=== PATIENT | female | born 1975 | race African-American/Black ===

== ENCOUNTER 2019-05-12 09:14 | Emergency (ER) | payer SELFPAY ==
[~2019-05-12] VITALS: Ht 170.2 cm; Wt 113.4 kg
[2019-05-12 09:50] LABS: Urine WBC None Seen /hpf (0 - 5)
[2019-05-12] MEDS ORDERED: MECLIZINE HCL 25 MG TAB PO ONE (10:00)
[2019-05-12 10:06] LABS: Urine Bacteria NONE SEEN /hpf (None Seen); Urine Blood Negative /uL (Negative); Urine Specific Gravity 1.019 (1.001-1.035)
[2019-05-12 10:25] LABS: Basophils # (auto) 0.1 uL; Basophils % (auto) 0.8 % (0.0-2.0); Eosinophils # (auto) 0 uL; Eosinophils % (auto) 0.5 % (0.0-7.0); Hemoglobin 16.2 g/dL (12.2-16.2); Lymphocytes # (auto) 2.2 uL; Lymphocytes % (auto) 34.4 % (10.0-50.0); Mean Corpuscular Hemoglobin 32.4 pg (28.0-32.0); Mean Corpuscular Hgb Conc. 33.7 g/dL (32.0-36.0); Mean Corpuscular Volume 96.2 fL (80.0-100.0); Monocytes # (auto) 0.5 uL; Monocytes % (auto) 7.1 % (0.0-12.0); Neutrophils # (auto) 3.7 uL; Neutrophils % (auto) 57.2 % (37.0-80.0); Nucleated Red Blood Cells % 0.1 %; Platelet Count (auto) 160 10^3/uL (140-450); Red Blood Cells 4.99 10^6/uL (4.0-5.20); Red Cell Distribution Width 13.6 % (11.8-14.3); White Blood Cell 6.5 10^3/uL (4.4-10.8)
[2019-05-12 10:46] LABS: Alanine Aminotransferase 19 U/L (13-56); Albumin 3.9 g/dL (3.4-5.0); Anion Gap 9 (5-15); Blood Urea Nitrogen 15 mg/dL (7-18); Calcium 9.6 mg/dL (8.5-10.1); Carbon Dioxide 26 mmol/L (21-32); Chloride 104 mmol/L (98-107); Glucose 131 mg/dL (74-106); Potassium 3.9 mmol/L (3.5-5.1); Sodium 139 mmol/L (136-145)
[2019-05-12 10:51] LABS: Alkaline Phosphatase 74 U/L (45-117); Aspartate Aminotransferase 22 U/L (15-37); BUN/Creatinine Ratio 22.7; Bilirubin, Total 0.4 mg/dL (0.2-1.0); GFR African American 126 mL/min; GFR Non-African American 104 mL/min; Total Protein 8.7 g/dL (6.4-8.2)
[2019-05-12 11:15] VITALS: BP 163/96
== END 2019-05-12 11:54 | disposition home or self-care (01) ==
LOC: ER 09:14 → EDUNIT# 09:14 → EDBD 09:14 → ER 11:54
DX: R42 Dizziness and giddiness (principal); H83.2X9 Labyrinthine dysfunction, unspecified ear; E11.9 Type 2 diabetes mellitus without complications; I10 Essential (primary) hypertension
CPT/HCPCS: 36415; 70450; 80053; 81001; 84484; 85025; 93005; 99284; J8597

== ENCOUNTER → 2020-06-15 | Outpatient (CLI) | payer OTHER ==
[2020-06-15 10:23] LABS: Basophils # (auto) 0 10 ^3/uL (0-0.2); Basophils % (auto) 0.7 % (0.0-2.0); Eosinophils # (auto) 0.1 10 ^3/uL (0-0.8); Eosinophils % (auto) 1.3 % (0.0-7.0); Hematocrit 43.8 % (36.0-46.0); Hemoglobin 14.9 g/dL (12.2-16.2); Lymphocytes # (auto) 1.8 10 ^3/uL (0.4-5.4); Lymphocytes % (auto) 38.8 % (10.0-50.0); Mean Corpuscular Hemoglobin 33.3 pg (28.0-32.0); Monocytes # (auto) 0.3 10 ^3/uL (0-1.3); Monocytes % (auto) 7.2 % (0.0-12.0); Neutrophils # (auto) 2.5 10 ^3/uL (1.6-8.6); Nucleated Red Blood Cells % 0.2 %; Platelet Count (auto) 167 10^3/uL (140-450); Red Blood Cells 4.47 10^6/uL (4.0-5.20); Red Cell Distribution Width 12.9 % (11.8-14.3); White Blood Cell 4.7 10^3/uL (4.4-10.8)
[2020-06-15 10:53] LABS: Urine Bacteria FEW /hpf (None Seen); Urine Blood Negative /uL (Negative); Urine Specific Gravity 1.018 (1.001-1.035); Urine WBC <1 /hpf (0 - 5)
[2020-06-15 14:18] LABS: Albumin 3.3 g/dL (3.4-5.0); BUN/Creatinine Ratio 16.7; Bilirubin, Total 0.4 mg/dL (0.2-1.0); Potassium 4.6 mmol/L (3.5-5.1); Total Protein 7.6 g/dL (6.4-8.2)
[2020-06-17 09:32] LABS: Free T4 (Free Thyroxine) 0.74 ng/dL (0.89-1.76)
== END | disposition home or self-care (01) ==
LOC: LAB 08:53
PROVIDERS: ATTEND Internal Medicine
DX: Z00.00 Encounter for general adult medical examination without abnormal findings (principal); I10 Essential (primary) hypertension
CPT/HCPCS: 36415; 80053; 80061; 81001; 82043; 82306; 82607; 83036; 84439; 84443; 85025

== ENCOUNTER → 2023-10-26 | Outpatient (CLI) | payer OTHER ==
[2023-10-26 13:19] LABS: Anion Gap 6 (5-15); Calcium 9.6 mg/dL (8.5-10.1); Carbon Dioxide 31 mmol/L (20-30); Chloride 103 mmol/L (98-107); Potassium 4.2 mmol/L (3.5-5.1); Sodium 140 mmol/L (136-145)
[2023-10-26 13:24] LABS: Glucose 220 mg/dL (74-106)
[2023-10-26 13:25] LABS: BUN/Creatinine Ratio 16.9 (10.0-20.0); Blood Urea Nitrogen 14 mg/dL (9-23)
== END | disposition home or self-care (01) ==
LOC: LAB 12:48
PROVIDERS: ATTEND Urology
DX: R33.9 Retention of urine, unspecified (principal)
CPT/HCPCS: 36415; 80048

== ENCOUNTER → 2024-02-17 | Outpatient (CLI) | payer OTHER ==
[2024-02-17 10:04] LABS: Basophils # (auto) 0.1 10 ^3/uL (0-0.2); Basophils % (auto) 0.9 % (0.0-2.0); Eosinophils # (auto) 0.1 10 ^3/uL (0-0.8); Eosinophils % (auto) 1.3 % (0.0-7.0); Hematocrit 43.3 % (36.0-46.0); Hemoglobin 14.9 g/dL (12.2-16.2); Lymphocytes # (auto) 2.8 10 ^3/uL (0.4-5.4); Lymphocytes % (auto) 38.6 % (10.0-50.0); Mean Corpuscular Hemoglobin 32.6 pg (28.0-32.0); Mean Corpuscular Hgb Conc. 34.4 g/dL (32.0-36.0); Mean Corpuscular Volume 94.5 fL (80.0-100.0); Monocytes # (auto) 0.7 10 ^3/uL (0-1.3); Monocytes % (auto) 9.4 % (0.0-12.0); Neutrophils # (auto) 3.6 10 ^3/uL (1.6-8.6); Neutrophils % (auto) 49.8 % (37.0-80.0); Nucleated Red Blood Cells % 0.1 %; Red Blood Cells 4.58 10^6/uL (4.0-5.20); Red Cell Distribution Width 13.4 % (11.8-14.3); White Blood Cell 7.2 10^3/uL (4.4-10.8)
[2024-02-17 10:21] LABS: Urine Bacteria FEW /hpf (None Seen); Urine Blood 2+ /uL (Negative); Urine Clarity Turbid (Clear); Urine Color Light-Orange (Yellow); Urine Mucus FEW (None Seen); Urine Protein, UAD 1+ (Negative); Urine Specific Gravity 1.022 (1.001-1.035); Urine Urobilinogen Normal (Negative); Urine WBC 265 /hpf (0 - 5); Urine WBC Clumps PRESENT /hpf (None Seen); Urine pH 5.5 (5.0-9.0)
[2024-02-17 11:17] LABS: Alanine Aminotransferase 51 U/L (7-40); Alkaline Phosphatase 79 U/L (46-116); Anion Gap 8 (5-15); Carbon Dioxide 22 mmol/L (20-30); Chloride 106 mmol/L (98-107); Sodium 136 mmol/L (136-145)
[2024-02-17 11:18] LABS: Calcium 9.5 mg/dL (8.5-10.1)
[2024-02-17 11:19] LABS: Free T4 (Free Thyroxine) 1.07 ng/dL (0.89-1.76)
[2024-02-17 11:23] LABS: BUN/Creatinine Ratio 15.8 (10.0-20.0); Blood Urea Nitrogen 12 mg/dL (9-23); Glucose 260 mg/dL (74-106); Triglycerides 107 mg/dL (< 150)
[2024-02-17 11:24] LABS: Albumin 4.3 g/dL (3.2-4.8); LDL Cholesterol 148 mg/dL (< 100)
[2024-02-17 11:25] LABS: Aspartate Aminotransferase 107 U/L (13-40); Bilirubin, Total 0.8 mg/dL (0.2-1.0); Cholesterol 206 mg/dL (< 200); HDL Cholesterol 42 mg/dL (40-59); Total Protein 7.2 g/dL (5.7-8.2)
== END | disposition home or self-care (01) ==
LOC: LAB 09:45
PROVIDERS: ATTEND Internal Medicine
DX: I10 Essential (primary) hypertension (principal); R73.03 Prediabetes; E78.2 Mixed hyperlipidemia; E66.01 Morbid (severe) obesity due to excess calories
CPT/HCPCS: 36415; 80053; 80061; 81001; 82043; 82306; 82607; 83036; 84439; 84443; 85025

== ENCOUNTER → 2024-03-06 | Outpatient (CLI) | payer OTHER ==
[~2024-03-06] MED LIST: AMLO1TAB22 PO; APIX5TAB PO; APIX5TAB4 PO; EMPA1TAB3 PO; LOSA-535 PO; ROSU10TA64 PO
== END | disposition home or self-care (01) ==
LOC: XYW 15:58
PROVIDERS: ATTEND Internal Medicine
DX: I51.89 Other ill-defined heart diseases (principal); R00.0 Tachycardia, unspecified; E66.9 Obesity, unspecified
CPT/HCPCS: 93306

== ENCOUNTER 2024-03-23 16:10 | Inpatient (IN) | payer OTHER ==
[~2024-03-23] VITALS: Ht 170.2 cm; Wt 120.0 kg
[2024-03-23] MEDS: IOHEXOL 350 MG/ML 100ML IJ ONE (18:08)
[2024-03-23] MEDS: HEPARIN SODIUM (PORCINE) 5000 UNITS/ML 1ML VIAL IV ONE (20:01)
[2024-03-23 20:16] LABS: Basophils # (auto) 0 10 ^3/uL (0-0.2); Basophils % (auto) 0.5 % (0.0-2.0); Eosinophils # (auto) 0.1 10 ^3/uL (0-0.8); Eosinophils % (auto) 1.3 % (0.0-7.0); Hematocrit 46.3 % (36.0-46.0); Hemoglobin 15.3 g/dL (12.2-16.2); Lymphocytes # (auto) 3.8 10 ^3/uL (0.4-5.4); Lymphocytes % (auto) 41.4 % (10.0-50.0); Mean Corpuscular Hemoglobin 31.1 pg (28.0-32.0); Mean Corpuscular Volume 94.3 fL (80.0-100.0); Monocytes # (auto) 0.8 10 ^3/uL (0-1.3); Monocytes % (auto) 8.8 % (0.0-12.0); Neutrophils # (auto) 4.4 10 ^3/uL (1.6-8.6); Nucleated Red Blood Cells % 0.1 %; Platelet Count (auto) 176 10^3/uL (140-450); Red Blood Cells 4.92 10^6/uL (4.0-5.20); Red Cell Distribution Width 13.1 % (11.8-14.3); White Blood Cell 9.2 10^3/uL (4.4-10.8)
[2024-03-23 20:36] VITALS: PULSE 98; RESP 18; O2SAT 98
[2024-03-23 20:37] LABS: Alanine Aminotransferase 23 U/L (7-40); Albumin 4.6 g/dL (3.2-4.8); Alkaline Phosphatase 86 U/L (46-116); Anion Gap 8 (5-15); Aspartate Aminotransferase 35 U/L (13-40); BUN/Creatinine Ratio 17.9 (10.0-20.0); Blood Urea Nitrogen 12 mg/dL (9-23); Calcium 10.3 mg/dL (8.7-10.4); Carbon Dioxide 25 mmol/L (20-30); Chloride 107 mmol/L (98-107); Glucose 101 mg/dL (74-106); INR 1.13 (0.9-1.15); Partial Thromboplastin Time 25.6 SEC (24.5-34.5); Prothrombin Time 11.9 sec (9.3-11.8); Sodium 140 mmol/L (136-145)
[2024-03-23 20:38] LABS: Bilirubin, Total 0.7 mg/dL (0.2-1.0)
[2024-03-23] MEDS: HEPARIN DRIP/D5W 100UNITS/ML 250 ML IV SCH (20:46)
[2024-03-23] MEDS ORDERED: DEXTROSE (50%) 50ML SYRG IV PRN (21:30)
[2024-03-23] MEDS ORDERED: ONDANSETRON HCL 4 MG/2 ML VIAL IV PRN (21:30)
[2024-03-23] MEDS ORDERED: IPRATROPIUM BROM 0.5 MG/2.5ML INH SOL NEB PRN (21:30)
[2024-03-23] MEDS ORDERED: ALBUTEROL SULF 2.5 MG/0.5ML(0.5%) NEB SOLN NEB PRN (21:30)
[2024-03-23] MEDS ORDERED: ACETAMINOPHEN 325 MG TAB PO PRN (21:30)
[2024-03-23] MEDS ORDERED: hydrALAZINE HCL 20 MG/ML VL IV PRN (21:30)
[2024-03-23] MEDS ORDERED: DOCUSATE SOD 100 MG CAP PO PRN (21:30)
[2024-03-23 21:55] VITALS: BP 144/89; PULSE 98; RESP 20; TEMP 98; O2SAT 98
[2024-03-23] MEDS: InsuLIN REG 1unit/0.01ml Soln (100units/ml) SC SCH (22:00)
[2024-03-23] MEDS: SODIUM CHLOR 0.9% PF (SALINE LOCK) 10ML VIAL/SYR IV SCH (22:06)
[2024-03-23] MEDS: ACCU-CHEK COMFORT CURVE STRIP VI SCH (22:06)
[2024-03-23] MEDS: ATORVASTATIN 20 MG TAB PO SCH (22:09)
[2024-03-23] MEDS ORDERED: MORPHINE SULFATE INJ 2 MG/ml SYRG IV PRN (23:45)
[2024-03-23] MEDS ORDERED: NITROGLYCERIN 0.4 MG SL TAB SL PRN (23:45)
[2024-03-24] VITALS (15 sets, daily range): BP systolic 91–109; BP diastolic 55–74; PULSE 66–102; RESP 12–20; TEMP 98.2–99.1; O2SAT 94–100
[2024-03-24 03:45] LABS: Basophils # (auto) 0.1 10 ^3/uL (0-0.2); Basophils % (auto) 0.8 % (0.0-2.0); Eosinophils # (auto) 0.1 10 ^3/uL (0-0.8); Eosinophils % (auto) 1.4 % (0.0-7.0); Hematocrit 42.1 % (36.0-46.0); Hemoglobin 14.3 g/dL (12.2-16.2); Lymphocytes # (auto) 2.7 10 ^3/uL (0.4-5.4); Lymphocytes % (auto) 37.7 % (10.0-50.0); Mean Corpuscular Hemoglobin 31.4 pg (28.0-32.0); Mean Corpuscular Hgb Conc. 33.9 g/dL (32.0-36.0); Mean Corpuscular Volume 92.5 fL (80.0-100.0); Monocytes # (auto) 0.7 10 ^3/uL (0-1.3); Monocytes % (auto) 9.2 % (0.0-12.0); Neutrophils # (auto) 3.7 10 ^3/uL (1.6-8.6); Neutrophils % (auto) 50.9 % (37.0-80.0); Platelet Count (auto) 186 10^3/uL (140-450); Red Blood Cells 4.55 10^6/uL (4.0-5.20); Red Cell Distribution Width 13.4 % (11.8-14.3); White Blood Cell 7.2 10^3/uL (4.4-10.8)
[2024-03-24] MEDS ORDERED: AMLO1TAB22 PO (03:46)
[2024-03-24] MEDS ORDERED: EMPA1TAB3 PO (03:46)
[2024-03-24] MEDS ORDERED: LOSA-535 PO (03:46)
[2024-03-24] MEDS ORDERED: ROSU10TA64 PO (03:46)
[2024-03-24 03:59] LABS: Alanine Aminotransferase 23 U/L (7-40); Alkaline Phosphatase 74 U/L (46-116); Calcium 9.6 mg/dL (8.7-10.4); Chloride 108 mmol/L (98-107)
[2024-03-24 04:00] LABS: Albumin 4.2 g/dL (3.2-4.8); Anion Gap 8 (5-15); Aspartate Aminotransferase 29 U/L (13-40); BUN/Creatinine Ratio 16.2 (10.0-20.0); Bilirubin, Total 0.6 mg/dL (0.2-1.0); Blood Urea Nitrogen 12 mg/dL (9-23); Carbon Dioxide 24 mmol/L (20-30); Glucose 237 mg/dL (74-106); Potassium 3.7 mmol/L (3.5-5.1); Sodium 140 mmol/L (136-145); Total Protein 7.2 g/dL (5.7-8.2)
[2024-03-24 04:23] LABS: INR 1.08 (0.9-1.15); Partial Thromboplastin Time 26.1 SEC (24.5-34.5); Prothrombin Time 11.4 sec (9.3-11.8)
[2024-03-24] MEDS: HEPARIN SODIUM (PORCINE) 5000 UNITS/ML 1ML VIAL IV ONE (04:53)
[2024-03-24] MEDS: HEPARIN DRIP/D5W 100UNITS/ML 250 ML IV SCH ×2 (04:59→19:32)
[2024-03-24] MEDS: amLODIPine BESYLATE 5 MG TAB PO SCH (10:07)
[2024-03-24] MEDS: LOSARTAN POTASSIUM 50 MG TAB PO SCH (10:08)
[2024-03-24 10:17] LABS: Base Excess -2.6 mmol/L (-2.0-2.0)
[2024-03-24 11:46] LABS: INR 1.09 (0.9-1.15); Partial Thromboplastin Time 32.7 SEC (24.5-34.5); Prothrombin Time 11.5 sec (9.3-11.8)
[2024-03-24] MEDS ORDERED: HEPARIN SODIUM (PORCINE) 5000 UNITS/ML 1ML VIAL IV ONE (12:15)
[2024-03-24 12:25] LABS: Amphetamine Screen, Urine Neg (NEGATIVE); Barbiturate Scree,Urine Neg (NEGATIVE)
[2024-03-24 12:26] LABS: Benzodiazephine Screen, Urine Neg (NEGATIVE); Cannabinoid Screen, Urine Neg (NEGATIVE); Cocaine Screen, Urine Neg (NEGATIVE); Opiate Scree,Urine Neg (NEGATIVE); Phencyclidine Screen, Urine Neg (NEGATIVE)
[2024-03-24] MEDS ORDERED: HEPARIN DRIP/D5W 100UNITS/ML 250 ML IV SCH (12:30)
[2024-03-24] MEDS: IODIXANOL 320MG/ML 100ML BTL IV ONE ×3 (12:40→14:01)
[2024-03-24] MEDS: HEPARIN IN NS 1000Units/500mL 1,500 ML ONE (12:41)
[2024-03-24] MEDS: MIDAZOLAM HCL 2MG/2ML 2ml VIAL (1mg/ml) ONE ×2 (12:42→13:34)
[2024-03-24] MEDS: fentaNYL CITRATE 100 MCG/2 ML VL ONE (12:42)
[2024-03-24] MEDS: LIDOCAINE 2%HCL (LOCAL ANESTH.) INJ 20ML MDV ONE (12:42)
[2024-03-24] MEDS: HEPARIN SODIUM (PORCINE) 5000 UNITS/ML 1ML VIAL ONE (13:25)
[2024-03-24 18:06] LABS: INR 1.17 (0.9-1.15); Prothrombin Time 12.3 sec (9.3-11.8)
[2024-03-24] MEDS: ERGOCALCIFEROL 50,000 UNIT(1.25MG) CAP PO SCH (18:26)
[2024-03-24 18:35] LABS: Partial Thromboplastin Time > 139.0 SEC (24.5-34.5)
[2024-03-25] VITALS (13 sets, daily range): BP systolic 104–147; BP diastolic 55–76; PULSE 62–105; RESP 16–19; TEMP 97.8–98.7; O2SAT 94–100
[2024-03-25] MEDS: HYDROcodone-ACET 5/325MG TAB PO PRN (03:55)
[2024-03-25 06:05] LABS: Basophils # (auto) 0 10 ^3/uL (0-0.2); Basophils % (auto) 0.7 % (0.0-2.0); Eosinophils # (auto) 0.1 10 ^3/uL (0-0.8); Eosinophils % (auto) 2.2 % (0.0-7.0); Hematocrit 36.5 % (36.0-46.0); Hemoglobin 12.3 g/dL (12.2-16.2); Lymphocytes % (auto) 45.5 % (10.0-50.0); Mean Corpuscular Hemoglobin 31.6 pg (28.0-32.0); Mean Corpuscular Hgb Conc. 33.8 g/dL (32.0-36.0); Mean Corpuscular Volume 93.4 fL (80.0-100.0); Monocytes # (auto) 0.6 10 ^3/uL (0-1.3); Neutrophils # (auto) 2.8 10 ^3/uL (1.6-8.6); Neutrophils % (auto) 42.6 % (37.0-80.0); Nucleated Red Blood Cells % 0.2 %; Platelet Count (auto) 174 10^3/uL (140-450); Red Cell Distribution Width 13.2 % (11.8-14.3); White Blood Cell 6.6 10^3/uL (4.4-10.8)
[2024-03-25 06:21] LABS: Anion Gap 3 (5-15); Calcium 9.1 mg/dL (8.7-10.4); Carbon Dioxide 28 mmol/L (20-30); Chloride 108 mmol/L (98-107); Sodium 139 mmol/L (136-145)
[2024-03-25 06:27] LABS: BUN/Creatinine Ratio 17.5 (10.0-20.0); Blood Urea Nitrogen 11 mg/dL (9-23); Glucose 165 mg/dL (74-106)
[2024-03-25] MEDS: Empagliflozin (Jardiance) 25 MG TAB PO SCH (08:35)
[2024-03-25 10:33] LABS: INR 1.13 (0.9-1.15); Prothrombin Time 11.9 sec (9.3-11.8)
[2024-03-25 10:40] LABS: Partial Thromboplastin Time 105.9 SEC (24.5-34.5)
[2024-03-25 11:24] LABS: Base Excess -0.9 mmol/L (-2.0-2.0)
[2024-03-25] MEDS: HEPARIN DRIP/D5W 100UNITS/ML 250 ML IV SCH (12:01)
[2024-03-25 19:11] LABS: INR 1.13 (0.9-1.15); Partial Thromboplastin Time 59.7 SEC (24.5-34.5); Prothrombin Time 11.9 sec (9.3-11.8)
[2024-03-26] VITALS (9 sets, daily range): BP systolic 98–113; BP diastolic 56–81; PULSE 82–98; RESP 16–20; TEMP 98.1–99.1; O2SAT 90–100
[2024-03-26 01:02] LABS: INR 1.14 (0.9-1.15); Partial Thromboplastin Time 61.2 SEC (24.5-34.5)
[2024-03-26 07:26] LABS: INR 1.1 (0.9-1.15); Partial Thromboplastin Time 62.4 SEC (24.5-34.5); Prothrombin Time 11.6 sec (9.3-11.8)
[2024-03-27] VITALS (14 sets, daily range): BP systolic 95–118; BP diastolic 52–90; PULSE 81–115; RESP 14–20; TEMP 97.5–98.7; O2SAT 92–98
[2024-03-27 05:45] LABS: Basophils # (auto) 0 10 ^3/uL (0-0.2); Basophils % (auto) 0.5 % (0.0-2.0); Eosinophils # (auto) 0.1 10 ^3/uL (0-0.8); Eosinophils % (auto) 2.1 % (0.0-7.0); Hematocrit 40.1 % (36.0-46.0); Hemoglobin 13.4 g/dL (12.2-16.2); Lymphocytes # (auto) 2.9 10 ^3/uL (0.4-5.4); Lymphocytes % (auto) 43.1 % (10.0-50.0); Mean Corpuscular Hemoglobin 31.2 pg (28.0-32.0); Mean Corpuscular Hgb Conc. 33.5 g/dL (32.0-36.0); Mean Corpuscular Volume 93.2 fL (80.0-100.0); Monocytes # (auto) 0.7 10 ^3/uL (0-1.3); Monocytes % (auto) 9.9 % (0.0-12.0); Neutrophils % (auto) 44.4 % (37.0-80.0); Nucleated Red Blood Cells % 0.1 %; Platelet Count (auto) 206 10^3/uL (140-450); Red Cell Distribution Width 13.3 % (11.8-14.3); White Blood Cell 6.7 10^3/uL (4.4-10.8)
[2024-03-27 05:49] LABS: Anion Gap 7 (5-15); Carbon Dioxide 24 mmol/L (20-30); Chloride 110 mmol/L (98-107); Potassium 4.1 mmol/L (3.5-5.1); Sodium 141 mmol/L (136-145)
[2024-03-27 05:51] LABS: Calcium 9.6 mg/dL (8.7-10.4)
[2024-03-27 05:55] LABS: Blood Urea Nitrogen 9 mg/dL (9-23); Glucose 149 mg/dL (74-106)
[2024-03-27 06:08] LABS: INR 1.06 (0.9-1.15); Partial Thromboplastin Time 42.8 SEC (24.5-34.5); Prothrombin Time 11.2 sec (9.3-11.8)
[2024-03-27] MEDS: HEPARIN DRIP/D5W 100UNITS/ML 250 ML IV SCH (06:54)
[2024-03-27] MEDS: HEPARIN IN NS 1000Units/500mL 1,500 ML ONE (12:23)
[2024-03-27] MEDS: SODIUM CHL 0.9% 50 ML ONE (13:49)
[2024-03-27] MEDS: HEPARIN SODIUM (PORCINE) 5000 UNITS/ML 1ML VIAL ONE (13:49)
[2024-03-27] MEDS: fentaNYL CITRATE 100 MCG/2 ML VL ONE (13:49)
[2024-03-27] MEDS: MIDAZOLAM HCL 2MG/2ML 2ml VIAL (1mg/ml) ONE (13:49)
[2024-03-27] MEDS: ANGIOMAX 250 MG VIAL IV ONE (13:49)
[2024-03-27] MEDS: LIDOCAINE 2%HCL (LOCAL ANESTH.) INJ 20ML MDV ONE (13:50)
[2024-03-27] MEDS: HYDROmorphone HCL 2 MG/ML VL/or syr ONE (14:51)
[2024-03-27 19:13] LABS: INR 1.11 (0.9-1.15); Partial Thromboplastin Time 66.3 SEC (24.5-34.5); Prothrombin Time 11.7 sec (9.3-11.8)
[2024-03-27 23:57] LABS: INR 1.13 (0.9-1.15); Partial Thromboplastin Time 64.9 SEC (24.5-34.5); Prothrombin Time 11.9 sec (9.3-11.8)
[2024-03-28] VITALS (7 sets, daily range): BP systolic 94–148; BP diastolic 51–88; PULSE 89–102; RESP 14–19; TEMP 97.8–98.3; O2SAT 96–100
[2024-03-28 06:53] LABS: INR 1.09 (0.9-1.15); Partial Thromboplastin Time 68.3 SEC (24.5-34.5); Prothrombin Time 11.5 sec (9.3-11.8)
[2024-03-28] MEDS ORDERED: APIX5TAB PO (10:10)
[2024-03-28] MEDS ORDERED: APIX5TAB4 PO (10:10)
[2024-03-28] MEDS: APIXABAN 5 MG TAB PO SCH (13:58)
[2024-03-29 11:07] LABS: Cancer Antigen (CA) 125 7.5 U/mL (0.0-38.1)
[2024-03-29 12:07] LABS: Antithrombin III Antigen 97 % (72-124); Dilute Prothrombin Time(dPT) 49.8 sec (0.0-47.6); PTT-LA 37.1 sec (0.0-43.5); Protein S Antigen Free 142 % (61-136); Proten S Antigen Total 149 % (60-150); Thrombin Time >150.0 sec (0.0-23.0); Thrombin Time Mix >150.0 sec (0.0-23.0); dPT Confirm Ratio 1.04 Ratio (0.00-1.34); dRVVT 47.1 sec (0.0-47.0); dRVVT Mix 39.4 sec (0.0-40.4)
[2024-03-29 12:07] LABS: CA 27.29 21.3 U/mL (0.0-38.6)
[2024-03-29 13:06] LABS: Carbohydrate Antigen 19-9 18 U/mL (0-35)
[2024-03-29 13:06] LABS: Lupus Interpretation Comment: (.); Thrombin Neutralization 19.7 sec (0.0-23.0)
[2024-04-04] MEDS ORDERED: APIXABAN 5 MG TAB PO SCH (10:00)
== END 2024-03-28 16:41 | disposition home or self-care (01) | DRG 270 ==
LOC: ER 16:10 → TELE 23:41 → TELE-CENTR 03-24 03:13
PROVIDERS: ADMIT Internal Medicine Geriatric Medicine; ATTEND Internal Medicine Geriatric Medicine
PROC: 02CQ3ZZ Extirpation of Matter from Right Pulmonary Artery, Percutaneous Approach (ICD-10-PCS; principal; 2024-03-24)
PROC: B31TYZZ Fluoroscopy of Left Pulmonary Artery using Other Contrast (ICD-10-PCS; 2024-03-24)
PROC: B31SYZZ Fluoroscopy of Right Pulmonary Artery using Other Contrast (ICD-10-PCS; 2024-03-24)
PROC: B5191ZZ Fluoroscopy of Inferior Vena Cava using Low Osmolar Contrast (ICD-10-PCS; 2024-03-24)
PROC: 04CD3ZZ Extirpation of Matter from Left Common Iliac Artery, Percutaneous Approach (ICD-10-PCS; 2024-03-27)
PROC: 04CN3ZZ Extirpation of Matter from Left Popliteal Artery, Percutaneous Approach (ICD-10-PCS; 2024-03-27)
PROC: 04CL3ZZ Extirpation of Matter from Left Femoral Artery, Percutaneous Approach (ICD-10-PCS; 2024-03-27)
PROC: B51NYZZ Fluoroscopy of Left Upper Extremity Veins using Other Contrast (ICD-10-PCS; 2024-03-27)
DX: I82.412 Acute embolism and thrombosis of left femoral vein (principal); I26.92 Saddle embolus of pulmonary artery without acute cor pulmonale; Z68.41 Body mass index [BMI] 40.0-44.9, adult; E11.9 Type 2 diabetes mellitus without complications; E66.01 Morbid (severe) obesity due to excess calories; E78.5 Hyperlipidemia, unspecified; I10 Essential (primary) hypertension; E55.9 Vitamin D deficiency, unspecified; Z79.84 Long term (current) use of oral hypoglycemic drugs
CPT/HCPCS: 36415; 36600; 37187; 71275; 75710; 75743; 76937; 80048; 80053; 80307; 81241; 82105; 82306; 82378; 82607; 82805; 82962; 83036; 84702; 85025; 85301; 85302; 85305; 85306; 85384; 85610; 85613; 85670; 85705; 85730; 85732; 86300; 86301; 86304; 86850; 86900; 86901; 93306; 93970; 99152; C1894; G0378; J1815; J2250; Q9967

== ENCOUNTER → 2024-03-23 | Outpatient (CLI) | payer OTHER ==
[~2024-03-23] MED LIST changes: -APIX5TAB PO; -APIX5TAB4 PO
== END | disposition home or self-care (01) ==
LOC: XYW 14:25
PROVIDERS: ATTEND Internal Medicine
DX: I26.99 Other pulmonary embolism without acute cor pulmonale (principal); R06.02 Shortness of breath; R06.00 Dyspnea, unspecified
CPT/HCPCS: 78582; A9540; A9558

== ENCOUNTER 2024-05-16 16:47 | Inpatient (IN) | payer OTHER ==
[~2024-05-16] VITALS: Ht 170.2 cm; Wt 139.6 kg
[~2024-05-16 16:47] MED LIST changes: +APIX5TAB PO; +APIX5TAB4 PO
[2024-05-16 21:53] VITALS: BP 121/61; PULSE 99; RESP 20; TEMP 98.8; O2SAT 98
[2024-05-16 22:00] VITALS: BP 121/67; PULSE 99; RESP 18; TEMP 98.8; O2SAT 98
[2024-05-16 23:25] LABS: Basophils # (auto) 0 10 ^3/uL (0-0.2); Basophils % (auto) 0.4 % (0.0-2.0); Eosinophils # (auto) 0.1 10 ^3/uL (0-0.8); Eosinophils % (auto) 1.7 % (0.0-7.0); Hematocrit 28.2 % (36.0-46.0); Hemoglobin 9.4 g/dL (12.2-16.2); Lymphocytes # (auto) 2.6 10 ^3/uL (0.4-5.4); Lymphocytes % (auto) 31.4 % (10.0-50.0); Mean Corpuscular Hemoglobin 29.3 pg (28.0-32.0); Mean Corpuscular Hgb Conc. 33.2 g/dL (32.0-36.0); Mean Corpuscular Volume 88.2 fL (80.0-100.0); Monocytes # (auto) 0.8 10 ^3/uL (0-1.3); Monocytes % (auto) 9.8 % (0.0-12.0); Neutrophils # (auto) 4.7 10 ^3/uL (1.6-8.6); Neutrophils % (auto) 56.7 % (37.0-80.0); Nucleated Red Blood Cells % 0.1 %; Platelet Count (auto) 233 10^3/uL (140-450); Red Cell Distribution Width 14.8 % (11.8-14.3); White Blood Cell 8.3 10^3/uL (4.4-10.8)
[2024-05-16 23:48] LABS: INR 1.09 (0.9-1.15); Partial Thromboplastin Time 24.8 SEC (24.5-34.5); Prothrombin Time 11.5 sec (9.3-11.8)
[2024-05-16 23:51] LABS: Alanine Aminotransferase 18 U/L (7-40); Albumin 4.3 g/dL (3.2-4.8); Alkaline Phosphatase 85 U/L (46-116); Anion Gap 8 (5-15); Aspartate Aminotransferase 25 U/L (13-40); BUN/Creatinine Ratio 18.6 (10.0-20.0); Blood Urea Nitrogen 13 mg/dL (9-23); Calcium 9.8 mg/dL (8.7-10.4); Carbon Dioxide 24 mmol/L (20-31); Chloride 106 mmol/L (98-107); Glucose 146 mg/dL (74-106); Potassium 3.9 mmol/L (3.5-5.1); Sodium 138 mmol/L (136-145)
[2024-05-16 23:52] LABS: Bilirubin, Total 0.4 mg/dL (0.2-1.0); Total Protein 7.2 g/dL (5.7-8.2)
[2024-05-17] VITALS (14 sets, daily range): BP systolic 103–132; BP diastolic 58–89; PULSE 88–120; RESP 17–21; TEMP 97.1–98.9; O2SAT 94–99
[2024-05-17] MEDS ORDERED: INFLUENZA TRIVALENT 2024-2025 0.5 ML INJ IM ONE (00:30)
[2024-05-17] MEDS ORDERED: DEXTROSE (50%) 50ML SYRG IV PRN (01:00)
[2024-05-17] MEDS ORDERED: ENOX80IN SC (01:01)
[2024-05-17] MEDS: ACETAMINOPHEN 500 MG TAB PO PRN (03:20)
[2024-05-17] MEDS ORDERED: InsuLIN REG 1unit/0.01ml Soln (100units/ml) SC SCH (04:00)
[2024-05-17] MEDS: ACCU-CHEK COMFORT CURVE STRIP VI SCH (05:07)
[2024-05-17] MEDS: InsuLIN REG 1unit/0.01ml Soln (100units/ml) SC SCH (05:07)
[2024-05-17 06:52] LABS: Chloride 105 mmol/L (98-107); Potassium 3.7 mmol/L (3.5-5.1); Sodium 139 mmol/L (136-145)
[2024-05-17 06:53] LABS: Anion Gap 8 (5-15); Carbon Dioxide 26 mmol/L (20-31)
[2024-05-17 06:54] LABS: Calcium 9.5 mg/dL (8.7-10.4)
[2024-05-17 06:58] LABS: BUN/Creatinine Ratio 19.4 (10.0-20.0); Blood Urea Nitrogen 13 mg/dL (9-23); Glucose 129 mg/dL (74-106)
[2024-05-17 07:06] LABS: Basophils # (auto) 0 10 ^3/uL (0-0.2); Basophils % (auto) 0.7 % (0.0-2.0); Eosinophils # (auto) 0.1 10 ^3/uL (0-0.8); Eosinophils % (auto) 2.3 % (0.0-7.0); Hemoglobin 8.9 g/dL (12.2-16.2); Lymphocytes # (auto) 2.2 10 ^3/uL (0.4-5.4); Lymphocytes % (auto) 34.9 % (10.0-50.0); Mean Corpuscular Hemoglobin 29.4 pg (28.0-32.0); Mean Corpuscular Hgb Conc. 33.1 g/dL (32.0-36.0); Mean Corpuscular Volume 88.6 fL (80.0-100.0); Monocytes # (auto) 0.8 10 ^3/uL (0-1.3); Monocytes % (auto) 11.9 % (0.0-12.0); Neutrophils # (auto) 3.2 10 ^3/uL (1.6-8.6); Neutrophils % (auto) 50.2 % (37.0-80.0); Nucleated Red Blood Cells % 0.1 %; Platelet Count (auto) 225 10^3/uL (140-450); Red Blood Cells 3.04 10^6/uL (4.0-5.20); Red Cell Distribution Width 14.4 % (11.8-14.3); White Blood Cell 6.4 10^3/uL (4.4-10.8)
[2024-05-17 07:17] LABS: % Iron Saturation 9.2 % (15-50)
[2024-05-17] MEDS: INSULIN LANTUS (GLARGINE) 1 /0.01ml (100units/ml) SC SCH (09:47)
[2024-05-17] MEDS: GELATIN 1 SPONGE SIZE 50 TOP ONE (12:04)
[2024-05-17] MEDS: fentaNYL CITRATE 100 MCG/2 ML VL ONE (12:36)
[2024-05-17] MEDS: MIDAZOLAM HCL 2MG/2ML 2ml VIAL (1mg/ml) ONE (12:37)
[2024-05-17] MEDS: LIDOCAINE 2%HCL (LOCAL ANESTH.) INJ 20ML MDV ONE (12:37)
[2024-05-17 20:25] LABS: Urine Bacteria None Seen /hpf (None Seen)
[2024-05-17 20:57] LABS: Urine Blood 3+ /uL (Negative); Urine Clarity Turbid (Clear); Urine Color Colorless (Yellow); Urine Protein, UAD TRACE (Negative); Urine Specific Gravity 1.039 (1.001-1.035); Urine Urobilinogen Normal (Negative); Urine WBC 414 /hpf (0 - 5)
[2024-05-17 21:03] LABS: Amphetamine Screen, Urine Neg (NEGATIVE)
[2024-05-17 21:04] LABS: Benzodiazephine Screen, Urine Pos (NEGATIVE)
[2024-05-17 21:05] LABS: Barbiturate Scree,Urine Neg (NEGATIVE); Cannabinoid Screen, Urine Neg (NEGATIVE); Cocaine Screen, Urine Neg (NEGATIVE); Opiate Scree,Urine Neg (NEGATIVE); Phencyclidine Screen, Urine Neg (NEGATIVE)
[2024-05-17] MEDS: ENOXAPARIN SOD 150 MG/1 ML SYRINGE SC SCH (21:26)
[2024-05-17] MEDS: MUPIROCIN 2% OINT 15gm or 22gm FOR MRSA NARES EACHNOSTRI SCH (21:26)
[2024-05-17] MEDS: MORPHINE SULFATE INJ 2 MG/ml SYRG IV PRN (21:27)
[2024-05-17] MEDS ORDERED: ENOXAPARIN SOD 100 MG/1 ML SYRINGE SC SCH (22:00)
[2024-05-18] VITALS (11 sets, daily range): BP systolic 97–130; BP diastolic 59–84; PULSE 67–112; RESP 16–19; TEMP 97.8–99.7; O2SAT 94–98
[2024-05-18 05:54] LABS: Chloride 106 mmol/L (98-107); Potassium 3.9 mmol/L (3.5-5.1); Sodium 138 mmol/L (136-145)
[2024-05-18 05:55] LABS: Anion Gap 7 (5-15); Carbon Dioxide 25 mmol/L (20-31)
[2024-05-18 05:56] LABS: Basophils # (auto) 0 10 ^3/uL (0-0.2); Basophils % (auto) 0.7 % (0.0-2.0); Eosinophils # (auto) 0.1 10 ^3/uL (0-0.8); Hematocrit 29.3 % (36.0-46.0); Hemoglobin 9.7 g/dL (12.2-16.2); Lymphocytes # (auto) 2.1 10 ^3/uL (0.4-5.4); Lymphocytes % (auto) 32.7 % (10.0-50.0); Mean Corpuscular Hemoglobin 29.3 pg (28.0-32.0); Mean Corpuscular Hgb Conc. 33.1 g/dL (32.0-36.0); Mean Corpuscular Volume 88.4 fL (80.0-100.0); Monocytes # (auto) 0.6 10 ^3/uL (0-1.3); Monocytes % (auto) 9.8 % (0.0-12.0); Neutrophils # (auto) 3.5 10 ^3/uL (1.6-8.6); Neutrophils % (auto) 54.8 % (37.0-80.0); Nucleated Red Blood Cells % 0.1 %; Platelet Count (auto) 213 10^3/uL (140-450); Red Blood Cells 3.31 10^6/uL (4.0-5.20); Red Cell Distribution Width 14.8 % (11.8-14.3); White Blood Cell 6.3 10^3/uL (4.4-10.8)
[2024-05-18 06:00] LABS: BUN/Creatinine Ratio 19.2 (10.0-20.0); Blood Urea Nitrogen 14 mg/dL (9-23); Glucose 174 mg/dL (74-106)
[2024-05-18] MEDS ORDERED: cefTRIAXone 1GM/50ML D5W 50 ML IV SCH (07:00)
[2024-05-18] MEDS: cefTRIAXone 1GM/50ML D5W 50 ML IV SCH (08:54)
[2024-05-18] MEDS: MUPIROCIN 2% OINT 15gm or 22gm FOR MRSA NARES EACHNOSTRI SCH (09:50)
[2024-05-18] MEDS: IRON SUCROSE COMPLEX 100 ML IV SCH (12:14)
[2024-05-19] VITALS (8 sets, daily range): BP systolic 99–118; BP diastolic 55–68; PULSE 94–106; RESP 14–18; TEMP 97.6–98.2; O2SAT 91–100
[2024-05-19 06:01] LABS: Anion Gap 6 (5-15); Carbon Dioxide 27 mmol/L (20-31); Chloride 109 mmol/L (98-107); Potassium 3.8 mmol/L (3.5-5.1); Sodium 142 mmol/L (136-145)
[2024-05-19 06:03] LABS: Calcium 9.4 mg/dL (8.7-10.4)
[2024-05-19 06:07] LABS: Glucose 107 mg/dL (74-106)
[2024-05-19 06:08] LABS: Blood Urea Nitrogen 11 mg/dL (9-23)
[2024-05-19 06:11] LABS: Basophils # (auto) 0 10 ^3/uL (0-0.2); Basophils % (auto) 0.7 % (0.0-2.0); Eosinophils # (auto) 0.2 10 ^3/uL (0-0.8); Eosinophils % (auto) 2.6 % (0.0-7.0); Hematocrit 31.8 % (36.0-46.0); Hemoglobin 10.4 g/dL (12.2-16.2); Lymphocytes # (auto) 2.4 10 ^3/uL (0.4-5.4); Lymphocytes % (auto) 37.7 % (10.0-50.0); Mean Corpuscular Hemoglobin 29.4 pg (28.0-32.0); Mean Corpuscular Hgb Conc. 32.8 g/dL (32.0-36.0); Mean Corpuscular Volume 89.6 fL (80.0-100.0); Monocytes # (auto) 0.8 10 ^3/uL (0-1.3); Monocytes % (auto) 13.2 % (0.0-12.0); Neutrophils # (auto) 2.9 10 ^3/uL (1.6-8.6); Neutrophils % (auto) 45.8 % (37.0-80.0); Nucleated Red Blood Cells % 0.4 %; Platelet Count (auto) 230 10^3/uL (140-450); Red Blood Cells 3.55 10^6/uL (4.0-5.20); Red Cell Distribution Width 14.8 % (11.8-14.3); White Blood Cell 6.3 10^3/uL (4.4-10.8)
[2024-05-19] MEDS ORDERED: IOHEXOL 300 MG/ML 100ML BOTTLE IJ ONE (07:15)
[2024-05-19] MEDS ORDERED: HYDROmorphone HCL 2 MG/ML VL/or syr ONE (07:17)
[2024-05-19] MEDS ORDERED: DexAMETHasone SOD PHOS 10MG/1ML VIAL INJ ONE (07:18)
[2024-05-19] MEDS ORDERED: ePHEDrine SULFATE 50 MG/ML AMP ONE (07:18)
[2024-05-19] MEDS ORDERED: LIDOCAINE 2% (LOCAL ANESTH.) PF 5ml SDV ONE (07:18)
[2024-05-19] MEDS ORDERED: fentaNYL CITRATE 100 MCG/2 ML VL ONE ×3 (07:18→10:53)
[2024-05-19] MEDS ORDERED: KETOROLAC TROMETH 30 MG/ML 1ML VIAL ONE (07:18)
[2024-05-19] MEDS ORDERED: ONDANSETRON HCL 4 MG/2 ML VIAL ONE (07:18)
[2024-05-19] MEDS ORDERED: MIDAZOLAM HCL 2MG/2ML 2ml VIAL (1mg/ml) ONE ×2 (07:18→08:06)
[2024-05-19] MEDS ORDERED: GLYCOPYRROLATE 0.2 MG/ML 1ML VIAL ONE (07:18)
[2024-05-19] MEDS ORDERED: ROCURONIUM 10MG/ML 10ML VIAL IV ONE (07:18)
[2024-05-19] MEDS ORDERED: PROPOFOL 10 MG/ML 20 ML IV ONE ×2 (07:18→10:11)
[2024-05-19] MEDS ORDERED: ceFAZolin 2 GM/D5W100ml 100 ML IV ONE (07:20)
[2024-05-19] MEDS ORDERED: KETAMINE 50mg/ML 1ml syringe ONE (08:11)
[2024-05-19] MEDS ORDERED: VASOPRESSIN 20 UNIT/ML ONE (08:52)
[2024-05-19] MEDS ORDERED: ceFAZolin 1GM VL ONE (10:58)
[2024-05-19] MEDS ORDERED: SUGAMMADEX 200mg/2ml Vial (100MG/ML) IV ONE (11:33)
[2024-05-19] MEDS ORDERED: HYDROmorphone HCL 2 MG/ML VL/or syr IV PRN (12:45)
[2024-05-19] MEDS: ACCU-CHEK COMFORT CURVE STRIP VI ONE (12:45)
[2024-05-19] MEDS: ONDANSETRON HCL 4 MG/2 ML VIAL IV ONE (12:45)
[2024-05-19] MEDS ORDERED: IBUPROFEN 800 MG TAB PO PRN (13:00)
[2024-05-19] MEDS: OXYCODONE W/ ACETAMINOPHEN 5/325MG TABLET PO PRN (13:58)
[2024-05-19] MEDS: ceFAZolin 1GM/50ML 50 ML IV SCH (14:00)
[2024-05-19 18:38] LABS: Basophils # (auto) 0 10 ^3/uL (0-0.2); Basophils % (auto) 0.2 % (0.0-2.0); Eosinophils # (auto) 0 10 ^3/uL (0-0.8); Hematocrit 30.3 % (36.0-46.0); Hemoglobin 9.6 g/dL (12.2-16.2); Lymphocytes # (auto) 0.9 10 ^3/uL (0.4-5.4); Lymphocytes % (auto) 10.2 % (10.0-50.0); Mean Corpuscular Hemoglobin 29.2 pg (28.0-32.0); Mean Corpuscular Hgb Conc. 31.7 g/dL (32.0-36.0); Mean Corpuscular Volume 92.1 fL (80.0-100.0); Monocytes # (auto) 0.6 10 ^3/uL (0-1.3); Monocytes % (auto) 6.7 % (0.0-12.0); Neutrophils # (auto) 7.4 10 ^3/uL (1.6-8.6); Neutrophils % (auto) 82.9 % (37.0-80.0); Nucleated Red Blood Cells % 0.2 %; Platelet Count (auto) 193 10^3/uL (140-450); Red Blood Cells 3.29 10^6/uL (4.0-5.20); Red Cell Distribution Width 14.7 % (11.8-14.3)
[2024-05-19] MEDS: MILK OF MAGNESIA 30ML SUSP PO SCH (21:58)
[2024-05-20] VITALS (8 sets, daily range): BP systolic 102–123; BP diastolic 56–72; PULSE 90–98; RESP 16–18; TEMP 97.6–98.4; O2SAT 94–100
[2024-05-20] MEDS: MORPHINE SULFATE 4 MG/ML SYR/VIAL IV PRN (03:02)
[2024-05-20 06:29] LABS: Basophils # (auto) 0 10 ^3/uL (0-0.2); Basophils % (auto) 0.2 % (0.0-2.0); Eosinophils # (auto) 0 10 ^3/uL (0-0.8); Eosinophils % (auto) 0.2 % (0.0-7.0); Hematocrit 27.5 % (36.0-46.0); Hemoglobin 9.2 g/dL (12.2-16.2); Lymphocytes # (auto) 1.9 10 ^3/uL (0.4-5.4); Mean Corpuscular Hemoglobin 30.1 pg (28.0-32.0); Mean Corpuscular Hgb Conc. 33.7 g/dL (32.0-36.0); Mean Corpuscular Volume 89.4 fL (80.0-100.0); Monocytes # (auto) 1.3 10 ^3/uL (0-1.3); Monocytes % (auto) 12.7 % (0.0-12.0); Neutrophils # (auto) 7.2 10 ^3/uL (1.6-8.6); Neutrophils % (auto) 68.9 % (37.0-80.0); Nucleated Red Blood Cells % 0.3 %; Platelet Count (auto) 188 10^3/uL (140-450); Red Blood Cells 3.07 10^6/uL (4.0-5.20); Red Cell Distribution Width 14.5 % (11.8-14.3); White Blood Cell 10.4 10^3/uL (4.4-10.8)
[2024-05-20 06:45] LABS: Alanine Aminotransferase 15 U/L (7-40); Albumin 3.5 g/dL (3.2-4.8); Alkaline Phosphatase 70 U/L (46-116); Anion Gap 6 (5-15); Aspartate Aminotransferase 24 U/L (13-40); BUN/Creatinine Ratio 13.8 (10.0-20.0); Blood Urea Nitrogen 9 mg/dL (9-23); Carbon Dioxide 26 mmol/L (20-31); Chloride 108 mmol/L (98-107); Glucose 144 mg/dL (74-106); Potassium 4.2 mmol/L (3.5-5.1); Sodium 140 mmol/L (136-145)
[2024-05-20 06:46] LABS: Bilirubin, Total 0.4 mg/dL (0.2-1.0); Total Protein 6.1 g/dL (5.7-8.2)
[2024-05-20] MEDS: PANTOPRAZOLE 40 MG/10 ML VIAL INJ IV ONE (17:56)
[2024-05-20] MEDS: ENOXAPARIN SOD 150 MG/1 ML SYRINGE SC SCH (22:03)
[2024-05-21] VITALS (7 sets, daily range): BP systolic 95–128; BP diastolic 40–87; PULSE 88–101; RESP 18–20; TEMP 98–99.1; O2SAT 90–98
[2024-05-21 06:15] LABS: Basophils # (auto) 0.1 10 ^3/uL (0-0.2); Basophils % (auto) 0.5 % (0.0-2.0); Eosinophils # (auto) 0.2 10 ^3/uL (0-0.8); Eosinophils % (auto) 1.6 % (0.0-7.0); Hematocrit 28.1 % (36.0-46.0); Hemoglobin 9.3 g/dL (12.2-16.2); Lymphocytes # (auto) 2.7 10 ^3/uL (0.4-5.4); Lymphocytes % (auto) 27.9 % (10.0-50.0); Mean Corpuscular Hemoglobin 29.9 pg (28.0-32.0); Mean Corpuscular Hgb Conc. 33.1 g/dL (32.0-36.0); Mean Corpuscular Volume 90.4 fL (80.0-100.0); Monocytes % (auto) 10.7 % (0.0-12.0); Neutrophils # (auto) 5.6 10 ^3/uL (1.6-8.6); Neutrophils % (auto) 59.3 % (37.0-80.0); Nucleated Red Blood Cells % 0.2 %; Platelet Count (auto) 202 10^3/uL (140-450); Red Cell Distribution Width 14.9 % (11.8-14.3); White Blood Cell 9.5 10^3/uL (4.4-10.8)
[2024-05-21 06:44] LABS: Calcium 8.7 mg/dL (8.7-10.4); Chloride 105 mmol/L (98-107); Potassium 3.8 mmol/L (3.5-5.1); Sodium 137 mmol/L (136-145)
[2024-05-21 06:45] LABS: Anion Gap 6 (5-15); Carbon Dioxide 26 mmol/L (20-31)
[2024-05-21 06:50] LABS: BUN/Creatinine Ratio 11.9 (10.0-20.0); Blood Urea Nitrogen 7 mg/dL (9-23); Glucose 109 mg/dL (74-106)
[2024-05-21] MEDS: PANTOPRAZOLE 40 MG/10 ML VIAL INJ IV SCH (08:57)
[2024-05-22 01:00] VITALS: BP 120/80; PULSE 94; RESP 19; TEMP 98; O2SAT 95
[2024-05-22 05:00] VITALS: BP 116/71; PULSE 79; RESP 18; TEMP 98.4; O2SAT 99
[2024-05-22 08:00] VITALS: PULSE 87; RESP 16
[2024-05-22 09:00] VITALS: BP 119/80; PULSE 91; RESP 17; TEMP 98.5; O2SAT 97
[2024-05-22 10:14] LABS: INR 1.08 (0.9-1.15); Partial Thromboplastin Time 27.4 SEC (24.5-34.5); Prothrombin Time 11.4 sec (9.3-11.8)
[2024-05-22] MEDS: APIXABAN 5 MG TAB PO SCH (10:25)
[2024-05-22 13:00] VITALS: BP 122/61; PULSE 100; RESP 17; TEMP 98.2; O2SAT 97
[2024-05-22] MEDS ORDERED: INSLANTI SC (14:10)
[2024-05-22] MEDS ORDERED: LANC28MI44 XX (14:10)
[2024-05-22] MEDS ORDERED: [UNRECOGNIZED DRUG - CODE] XX (14:10)
[2024-05-22] MEDS ORDERED: BLOO1KIT60 XX (14:10)
[2024-05-22] MEDS ORDERED: APIX5TAB PO (14:10)
[2024-05-22 17:00] VITALS: BP 119/88; PULSE 107; RESP 20; TEMP 98.5; O2SAT 93
[2024-05-29] MEDS ORDERED: APIXABAN 5 MG TAB PO SCH (10:00)
== END 2024-05-22 17:50 | disposition home or self-care (01) | DRG 742 ==
LOC: EAST 20:00 → TELE-EAST 05-19 02:36
PROVIDERS: ADMIT Internal Medicine; ATTEND Internal Medicine
PROC: 06H03DZ Insertion of Intraluminal Device into Inferior Vena Cava, Percutaneous Approach (ICD-10-PCS; principal; 2024-05-17)
PROC: 30233N1 Transfusion of Nonautologous Red Blood Cells into Peripheral Vein, Percutaneous Approach (ICD-10-PCS; 2024-05-18)
PROC: 0UB70ZZ Excision of Bilateral Fallopian Tubes, Open Approach (ICD-10-PCS; 2024-05-19)
PROC: 0UT90ZL Resection of Uterus, Supracervical, Open Approach (ICD-10-PCS; 2024-05-19)
PROC: 0UB90ZZ Excision of Uterus, Open Approach (ICD-10-PCS; 2024-05-19)
PROC: 0TJB8ZZ Inspection of Bladder, Via Natural or Artificial Opening Endoscopic (ICD-10-PCS; 2024-05-19)
PROC: 30233K1 Transfusion of Nonautologous Frozen Plasma into Peripheral Vein, Percutaneous Approach (ICD-10-PCS; 2024-05-19)
PROC: 0UBG0ZZ Excision of Vagina, Open Approach (ICD-10-PCS; 2024-05-19 08:04)
DX: D25.9 Leiomyoma of uterus, unspecified (principal); D62 Acute posthemorrhagic anemia; I82.432 Acute embolism and thrombosis of left popliteal vein; N39.0 Urinary tract infection, site not specified; Z68.42 Body mass index [BMI] 45.0-49.9, adult; I82.412 Acute embolism and thrombosis of left femoral vein; D26.0 Other benign neoplasm of cervix uteri; E11.9 Type 2 diabetes mellitus without complications; E78.00 Pure hypercholesterolemia, unspecified; E78.5 Hyperlipidemia, unspecified; N92.0 Excessive and frequent menstruation with regular cycle; I11.9 Hypertensive heart disease without heart failure; E66.01 Morbid (severe) obesity due to excess calories; N89.9 Noninflammatory disorder of vagina, unspecified; Z86.711 Personal history of pulmonary embolism; Z83.3 Family history of diabetes mellitus; Z79.899 Other long term (current) drug therapy
CPT/HCPCS: 36415; 37191; 71045; 80048; 80053; 80307; 81001; 82306; 82607; 82728; 82962; 83036; 83540; 83550; 84443; 84702; 85025; 85610; 85730; 86850; 86900; 86901; 86920; 87081; 93970; 97110; 97116; 97163; 97530; 99152; G0378; J0690; J1100; J1756; J1815; J1885; J2003; J2250; J2405; J2470; J2704

== ENCOUNTER → 2024-11-03 | Outpatient (CLI) | payer OTHER ==
[~2024-11-03] MED LIST changes: -APIX5TAB4 PO; +BLOO1KIT60 XX; +INSLANTI SC; +LANC28MI44 XX; +[UNRECOGNIZED DRUG - CODE] XX
[2024-11-03 14:09] LABS: Urine Bacteria FEW /hpf (None Seen); Urine Blood Negative /uL (Negative); Urine Clarity Turbid (Clear); Urine Color Colorless (Yellow); Urine Mucus FEW (None Seen); Urine Protein, UAD Negative (Negative); Urine Specific Gravity 1.023 (1.001-1.035); Urine Squamous Epithelial Cell FEW /hpf (<5); Urine Urobilinogen Normal (Negative); Urine WBC 8 /HPF (0-5); Urine pH 6.5 (5.0-9.0)
== END | disposition home or self-care (01) ==
LOC: LAB 13:47
PROVIDERS: ATTEND Internal Medicine
DX: N39.0 Urinary tract infection, site not specified (principal)
CPT/HCPCS: 81001; 87086

== ENCOUNTER 2025-04-16 11:16 | Outpatient (CLI) | payer OTHER ==
[2025-04-16 11:56] LABS: Hematocrit 42.9 % (36.0-46.0); Hemoglobin 14.4 g/dL (12.2-16.2); Mean Corpuscular Hemoglobin 30.4 pg (28.0-32.0); Mean Corpuscular Volume 90.6 fL (80.0-100.0); Nucleated Red Blood Cells % 0.0 %
[2025-04-16 12:12] LABS: Urine Protein, UAD TRACE (Negative)
[2025-04-16 12:15] LABS: Alanine Aminotransferase 28 U/L (7-40); Albumin 4.2 g/dL (3.2-4.8); Alkaline Phosphatase 85 U/L (46-116); Anion Gap 8 (5-15); BUN/Creatinine Ratio 19.0 (10.0-20.0); Bilirubin, Total 0.3 mg/dL (0.2-1.0); Blood Urea Nitrogen 11 mg/dL (9-23); Calcium 9.1 mg/dL (8.7-10.4); Carbon Dioxide 26 mmol/L (20-31); Chloride 106 mmol/L (98-107); Potassium 4.3 mmol/L (3.5-5.1); Sodium 140 mmol/L (136-145); Total Protein 7.5 g/dL (5.7-8.2); Triglycerides 150 mg/dL (< 150)
[2025-04-16 12:16] LABS: Free T4 (Free Thyroxine) 0.8 ng/dL (0.89-1.76)
[2025-04-16 12:17] LABS: Cholesterol 200 mg/dL (< 200); Glucose 180 mg/dL (74-106); HDL Cholesterol 66 mg/dL (40-59)
== END 2025-04-16 17:00 | disposition home or self-care (01) ==
LOC: LAB 11:16
PROVIDERS: ATTEND Internal Medicine
DX: I10 Essential (primary) hypertension (principal); E11.65 Type 2 diabetes mellitus with hyperglycemia; E55.9 Vitamin D deficiency, unspecified; Z12.11 Encounter for screening for malignant neoplasm of colon
CPT/HCPCS: 36415; 80053; 80061; 81001; 82043; 82306; 82607; 83036; 84439; 84443; 85025